=== PATIENT | female | born 1970 | race Caucasian/White ===

== ENCOUNTER 2017-09-23 15:57 | Emergency (ER) | payer OTHER ==
[~2017-09-23] VITALS: Ht 160 cm; Wt 92.1 kg
[2017-09-23 16:10] VITALS: Ht 160 cm; Wt 92.1 kg
[2017-09-23 18:30] VITALS: BP 121/72
== END 2017-09-23 18:30 | disposition home or self-care (01) ==
LOC: ED 15:57
DX: S39.011A Strain of muscle, fascia and tendon of abdomen, initial encounter (principal); S39.012A Strain of muscle, fascia and tendon of lower back, initial encounter; S80.212A Abrasion, left knee, initial encounter; S80.211A Abrasion, right knee, initial encounter; W01.0XXA Fall on same level from slipping, tripping and stumbling without subsequent striking against object, initial encounter; Y93.89 Activity, other specified; Y92.89 Other specified places as the place of occurrence of the external cause; Y99.8 Other external cause status
CPT/HCPCS: J1885

== ENCOUNTER 2017-10-23 10:25 | Emergency (ER) | payer SELFPAY ==
[~2017-10-23] VITALS: Ht 154.9 cm; Wt 93.2 kg
[2017-10-23 10:28] VITALS: Ht 154.9 cm; Wt 93.2 kg
[2017-10-23 11:03] LABS: BASOPHIL % 0.6 % (0-2); PLATELET COUNT 231 x10^3mcL (130-400); RED CELL DISTRIBUTION WIDTH 13.6 % (11.5-14.5)
[2017-10-23 11:28] LABS: CALCIUM 8.7 mg/dL (8.5-10.1); CARBON DIOXIDE 24.2 mmol/L (21-32); CHLORIDE SERUM 104 mmol/L (98-107); CREATININE SERUM 0.8 mg/dL (0.6-1.0); GFR1 > 60 mL/min; GLUCOSE SERUM 140 mg/dL (74-106); POTASSIUM SERUM 3.5 mmol/L (3.5-5.1); SODIUM SERUM 138 mmol/L (136-145)
[2017-10-23 11:42] LABS: ALBUMIN 3.4 g/dL (3.4-5.0); ALKALINE PHOSPHATASE 90 U/L (46-116); ALT/SGPT 61 U/L (14-59); AST/SGOT 53 U/L (15-37); BILIRUBIN TOTAL 0.32 mg/dL (0.20-1.00); T4(THYROXINE) 8.5 ug/dL (4.7-13.3)
[2017-10-23 12:16] LABS: microscopic required? YES; urine erythrocyte 3+ (NEGATIVE)
[2017-10-23 12:57] VITALS: BP 103/67
[2017-10-24 04:26] LABS: RAPID PLASMA REAGIN Non Reactive (Non Reactive)
== END 2017-10-23 12:57 | disposition home or self-care (01) ==
LOC: ED 10:25
PROVIDERS: Emergency Medicine
DX: N93.8 Other specified abnormal uterine and vaginal bleeding (principal); N94.10 Unspecified dyspareunia; Z98.51 Tubal ligation status
CPT/HCPCS: 87491; 87591; J0696; J1885; J2001